=== PATIENT | male | born 1990 | race Caucasian/White ===

== ENCOUNTER 2017-12-07 11:27 | Emergency (ER) | payer OTHER ==
[2017-12-07] MEDS: IBUPROFEN 800 MG TAB PO (14:31)
== END 2017-12-07 14:32 | disposition home or self-care (01) ==
LOC: M ED 11:27
DX: S93.401A Sprain of unspecified ligament of right ankle, initial encounter (principal); X50.9XXA Other and unspecified overexertion or strenuous movements or postures, initial encounter; Y92.139 Unspecified place military base as the place of occurrence of the external cause; Y99.1 Military activity; F17.210 Nicotine dependence, cigarettes, uncomplicated
CPT/HCPCS: 73610